=== PATIENT | male | born 1995 | race Caucasian/White ===

== ENCOUNTER 2017-05-07 00:10 | Emergency (ER) | payer MEDICAID ==
[2017-05-07] MEDS ORDERED: Metoclopramide 5 MG Tab PO ONE (00:37)
--- NOTE | 2017-05-07 00:51 | EDM.PDOC ---
ED HPI GENERAL MEDICAL PROBLEM - General Chief Complaint: Chest Pain Stated Complaint: SOB/CHEST PAIN Time Seen by Provider: 05/07/17 00:34 Source of Information: Reports: Patient History Limitations: Reports: No Limitations - History of Present Illness INITIAL COMMENTS - FREE TEXT/NARRATIVE: 21-year-old male attends the ED with complaints of intermittent sharp stabbing left precordial chest pain just below his left nipple that radiates through to the left lateral chest. It is associated with a sense of shortness of breath. Pain comes and goes .It is extremely sharp and stabbing at times. Left with a dull aching discomfort after the sharp pains resolve. He reports she's been experiencing this type of intermittent chest wall pain for 2 years.. Denies cough or sputum production. Denies recent illness with viral upper respiratory tract infection. No fever or chills. 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 He has not appreciated his heart racing since that time. In the back of his mind however that his heart as part of the problem. States he feels more short of breath related to when the pain comes. Denies any significant problems with gastroesophageal reflux disease. Never uses Tums or Rolaids. No trouble swallowing. Onset: Sudden (Pains have been coming off and on in the left precordial chest for close to 2 years.) Duration: Hour(s): Location: Reports: Chest (Left precordial chest.) Quality: Reports: Ache, Dull, Sharp, Stabbing Severity: Moderate Improves with: Reports: None Worsens with: Reports: None Context: Denies: Activity, Exercise, Lifting, Sick Contact, Trauma Associated Symptoms: Reports: Chest Pain, Shortness of Breath. Denies: No Other Symptoms, Confusion, Cough, cough w sputum, Diaphoresis (She is to present no), Fever/Chills, Headaches, Loss of Appetite, Malaise, Nausea/Vomiting , Rash, Seizure, Syncope, Weakness Treatments [employer]GER: Reports: Other (see below) (None.) Chest Pain Score (Numeric/FACES): 5 - Related Data Allergies Allergy/AdvReac Type Severity Reaction Status Date / Time No Known Allergies Allergy Verified 05/07/17 00:21 Home Meds: Home Meds Diclofenac Sodium [Voltaren] 50 mg PO TIDMEALS #20 tab.ec 05/07/17 [Rx] Past Medical History Cardiovascular History: Reports: Arrhythmia (History of WPW treated by ablation 2 years ago. This was done down in [facility].), Hypertension, Other (See Below) Other Cardiovascular History: WPW Social & Family History - Tobacco Use Smoking Status *Q: Current Every Day Smoker Years of Tobacco use: 4 Packs/Tins Daily: 1 - Living Situation & Occupation Living situation: Reports: Single Occupation: Unemployed ED ROS GENERAL - Review of Systems Review Of Systems: See Below Constitutional: Denies: Fever, Chills, Malaise, Weakness, Fatigue, Decreased Appetite, Weight Loss HEENT: Reports: No Symptoms Respiratory: Reports: Shortness of Breath, Pleuritic Chest Pain. Denies: Wheezing, Cough, Sputum, Hemoptysis, Other Cardiovascular: Reports: Chest Pain, Blood Pressure Problem (See history of present illness supposedly has chronic hypertension issues.), Dyspnea on Exertion. Denies: Claudication, Edema, Lightheadedness, Orthopnea ( Supposed to be on lisinopril but ran out some time ago.), Palpitations (Sometimes.) Endocrine: Reports: No Symptoms GI/Abdominal: Reports: No Symptoms : Reports: No Symptoms Musculoskeletal: Reports: No Symptoms Skin: Reports: No Symptoms Neurological: Reports: No Symptoms, Change in Speech Hematologic/Lymphatic: Reports: No Symptoms Immunologic: Reports: No Symptoms ED EXAM, GENERAL - Physical Exam Exam: See Below Exam Limited By: No Limitations General Appearance: Alert, WD/WN, Anxious, Mild Distress Eye Exam: Bilateral Eye: Normal Inspection Nose: Nasal Swelling (Mild swelling of the turbinates bilaterally.) Throat/Mouth: Normal Inspection, Normal Lips, Normal Teeth, Normal Oropharynx Head: Atraumatic, Normocephalic Neck: Normal Inspection, Supple, Non-Tender, Full Range of Motion. No: Lymphadenopathy (L), Lymphadenopathy (R), Thyromegaly Respiratory/Chest: No Respiratory Distress, Lungs Clear, Normal Breath Sounds, No Accessory Muscle Use, Other (Does have some mild chest wall tenderness just below the nipple midclavicular line over the fifth) Cardiovascular: Normal Peripheral Pulses ( and fourth intercostal spaces.), Regular Rate, Rhythm, No Edema, No Gallop, No Murmur, No Rub GI/Abdominal: Normal Bowel Sounds, Soft, Non-Tender, No Organomegaly, No Distention Extremities: Normal Inspection, Normal Range of Motion, Non-Tender, No Pedal Edema Neurological: Alert, Oriented, CN II-XII Intact, Normal Cognition, Normal Gait Psychiatric: Normal Affect, Normal Mood Skin Exam: Warm, Dry, Intact, Normal Color, No Rash EKG INTERPRETATION EKG Date: 05/07/17 Time: 00:20 Rhythm: NSR Rate (Beats/Min): 84 [place]: Normal P-Wave: Present (Short ID interval.) QRS: Other (Left ventricular hypertrophy pattern. Likely normal for his age and stature.) ST-T: Normal QT: Normal EKG Interpretation Comments: Borderline ECG. Course - Vital Signs Last Recorded V/S: Last Vital Signs Temp 36.6 C 05/07/17 00:19 Pulse 78 05/07/17 00:19 Resp 18 05/07/17 00:19 BP 153/92 H 05/07/17 00:19 Pulse Ox 98 05/07/17 00:19 - Orders/Labs/Meds Orders: Active Orders 24 hr Category Date Time Status EKG Documentation Completion [RC] STAT Care 05/07/17 00:53 Active Chest 2V [CR] Stat Exams 05/07/17 00:52 Taken Labs: Laboratory Tests 05/07/17 05/07/17 05/07/17 Range/Units 01:14 01:14 01:14 WBC 8.35 (4.23-9.07) K/mm3 RBC 5.31 (4.63-6.08) M/mm3 Hgb 15.9 (13.7-17.5) gm/L Hct 43.6 (40.1-51.0) % MCV 82.1 (79.0-92.2) fl MCH 29.9 (25.7-32.2) pg MCHC 36.5 H (32.2-35.5) g/dl RDW Std Deviation 38.0 (35.1-43.9) fL Plt Count 215 (163-337) K/mm3 MPV 9.5 (9.4-12.3) fl Neutrophils % (Manual) 44 (40-60) % Band Neutrophils % 0 (0-10) % Lymphocytes % (Manual) 43 H (20-40) % Atypical Lymphs % 5 % Monocytes % (Manual) 4 (2-10) % Eosinophils % (Manual) 4 (0.8-7.0) % Basophils % (Manual) 0 L (0.2-1.2) Platelet Estimate Adequate Plt Morphology Comment Normal RBC Morph Comment Normal Sodium 137 (136-145) mEq/L Potassium 3.4 L (3.5-5.1) mEq/L Chloride 103 (98-107) mEq/L Carbon Dioxide 23 (21-32) mEq/L Anion Gap 14.4 (5-15) BUN 17 (7-18) mg/dL Creatinine 0.8 (0.7-1.3) mg/dL Est Cr Clr Drug Dosing 131.81 mL/min Estimated GFR (MDRD) > 60 (>60) mL/min BUN/Creatinine Ratio 21.3 H (14-18) Glucose 113 H (74-106) mg/dL Calcium 8.7 (8.5-10.1) mg/dL Magnesium 2.1 (1.8-2.4) mg/dl Total Bilirubin 0.3 (0.2-1.0) mg/dL AST 19 (15-37) U/L ALT 39 (16-63) U/L Alkaline Phosphatase 93 (46-116) U/L C-Reactive Protein 0.5 (<1.0) mg/dL Total Protein 7.6 (6.4-8.2) g/dl Albumin 3.7 (3.4-5.0) g/dl Globulin 3.9 gm/dL Albumin/Globulin Ratio 1.0 (1-2) Monoscreen Negative (NEGATIVE) Meds: Medications Discontinued Medications Generic Name Dose Route Start Last Admin Trade Name Aylin PRN Reason Stop Dose Admin Ibuprofen 600 mg 05/07/17 00:57 05/07/17 01:23 Motrin PO 05/07/17 00:58 600 mg ONETIME ONE Administration Tramadol HCl 50 mg 05/07/17 00:56 05/07/17 01:23 Ultram PO 05/07/17 00:57 50 mg ONETIME ONE Administration - Radiology Interpretation Free Text/Narrative:: 21-year-old male presents to the ED for evaluation of sharp stabbing intermittent left precordial chest pains. He reports she's had these chest pains before but not for a period of time. States he started just before he tried to go to bed tonight. Deep breathing makes the pain slightly worse. Examination reveals good air entry to both lung mcneil . Heart sounds are normal. ECG shows sinus rhythm in 84/m. There is a left ventricular hypertrophy pattern primarily due to his stature. He does have a delta wave most prominent in lead V5. Does have a short ID interval as well. There are no signs of ischemia. Does have some chest wall pain on examination fourth and fifth intercostal spaces in the midclavicular line left side. Plan two-view chest x- ray will be obtained with routine labs including a CRP - Re-Assessments/Exams Free Text/Narrative Re-Assessment/Exam: 05/07/17 02:08 White count is 8.35. 40% neutrophils no bands and slightly increased lymphocytes at 43% with 5% atypical lymphs reported. Therefore a Monospot was ordered. Hemoglobin is 15.9 with hematocrit of 43.6. Sodium is 137 potassium slightly low at 3.4. Chloride 103 bicarbonate 23. And a gap is normal at 14.4. BUN is 17. Creatinine is 0.8. GFR is greater than 60. Glucose is 113. Calcium 8.7. Magnesium normal at 2.1. Liver function normal. C-reactive protein 0.5. Two-view chest x-ray done shows loss of lung vasculature at the base of the left lung as well as at the apex of the left lungs is suggesting that he has perhaps suffered a basilar spontaneous pneumothorax. I cannot see lung markings in the apex of the left lung either. These are not big enough to require a chest tube but may be accounting for his current chest pain in demand follow-up chest x-rays. I'm going to send the chest x-ray to [facility] for an over read by radiology. 05/07/17 02:26 [facility] read the chest x-ray as normal. I will consult with Dr. Em later this morning. Patient will be discharged to home. Plan will be to place him on Voltaren 50 mg 3 times a day for 5 days whenever he gets chest pain attack . Of note the mono spot did come back negative. Patient was so advised. Departure - Departure Time of Disposition: 02:27 Disposition: Home, Self-Care 01 Condition: Fair Clinical Impression: Non-cardiac chest pain, Anterior chest wall pain Prescriptions: Diclofenac Sodium [Voltaren] 50 mg PO TIDMEALS #20 tab.ec Instructions: Chest Wall Pain, [id number], Nonspecific Chest Pain, Easy-to- Read Referrals: PCP,None [Primary Care Provider] - Forms: ED Department Discharge Additional Instructions: Evaluation the emergency room tonight in regards to recurrence of left anterior chest pain which is very sharp stabbing and makes it difficult to breathe intermittently. This is occurred several times in the past for which she have not reviewed received adequate explanation. 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 Usually echovirus or coxsackievirus or been implicated in causing this intermittent inflammation of the muscles in between the ribs. In his usually very sharp and stabbing for 2-3 minutes only been leaves a dull aching discomfort for a period of time. Tends to come and go. X-ray outgrow it and it will go away completely. Treatment is to use anti-inflammatory such as Voltaren 50 mg 3 times daily for 5 days when it occurs. Take the medication only when you were experiencing a bout of chest wall pain. There is no evidence of any heart related illness. All of your tests tonight including ECG were normal. As we discussed there was some atypical white blood cells noted in your lab work which can sometimes suggest infectious mononucleosis which is a viral infection. I will call you if the Monospot or test for this virus comes back positive. If you don't hear from me that means it was negative. What this means is that you are experiencing a viral infection at this time. Activity as tolerated although running and I intensity exercise may certainly cause the chest wall pain to worsen. - My Orders Last 24 Hours: My Active Orders 05/07/17 00:52 Chest 2V [CR] Stat 05/07/17 00:53 EKG Documentation Completion [RC] STAT - Assessment/Plan Last 24 Hours: My Active Orders 05/07/17 00:52 Chest 2V [CR] Stat 05/07/17 00:53 EKG Documentation Completion [RC] STAT
[2017-05-07] MEDS ORDERED: traMADol 50 MG Tab PO ONE (00:56)
[2017-05-07] MEDS ORDERED: Ibuprofen 600 MG Tab PO ONE (00:57)
--- NOTE | 2017-05-07 09:30 | CR ---
Chest: Two views of the chest were obtained. Comparison: No prior chest x-ray. Heart size and mediastinum are normal. Lungs are clear. Bony structures are within normal limits for the patient's age. Impression: 1. Nothing acute is seen on two-view chest x-ray. Diagnostic code #1 I agree with preliminary report issued by [facility] ([facility] report finalized on 05/07/17, 3:17 AM Central Time)
== END 2017-05-07 02:40 | disposition home or self-care (01) ==
LOC: JD.ED 00:10
DX: R07.89 Other chest pain (principal); F17.210 Nicotine dependence, cigarettes, uncomplicated; I10 Essential (primary) hypertension
CPT/HCPCS: 36415; 71046; 80053; 83735; 85025; 86140; 86308; 93005; 99285; A9270; 93010